=== PATIENT | female | born 1955 | race Caucasian/White ===

== ENCOUNTER → 2019-01-08 | Outpatient (CLI) | payer MEDICARE ==
[~2019-01-08] MED LIST: DULO60CA6 PO; FERR142T6 PO; FOLI0.4T2 PO; FURO20TA4 PO; GABA600T PO; IBP800T PO; KCL10CCR PO; MTX2.5T PO; MULT-963 PO; TRAZ150T42 PO
--- NOTE | 2019-01-08 12:34 | Diagnostic Imaging Report ---
INDICATION: Postmenopausal screening for osteoporosis COMPARISON: 02/19/2013 FINDINGS: AP Spine L1-L4: [BMD (g/cm2): 0.9797] [T-Score: -1.8] [Z-Score: -0.6] [BMD Previous: 1.170] [BMD % Change: -16.3] LT Hip Neck: [BMD (g/cm2): 0.705] [T-Score: -2.4] [Z-Score: -1.2] LT Hip Total: [BMD (g/cm2):0.776] [T-Score:-1.8] [Z-Score: -0.9] [BMD Previous: 0.859] [BMD % Change: N/A] RT Hip Neck: [BMD (g/cm2):0.771] [T-Score:-1.9] [Z-Score:-0.7] RT Hip Total: [BMD (g/cm2):0.836] [T-score:-1.4] [Z-Score:-0.4] [BMD Previous:0.850] [BMD % Change:N/A] *Indicates significant change from prior examination based on 95% confidence level. World Health Organization criteria for BMD interpretation classify patients as Normal (T-score at or above -1.0), Osteopenic (T-score between -1.0 and -2.5) or Osteoporotic (T-score at or below -2.5). LIMITATIONS AND MODIFICATION: None. FRACTURE RISK (FRAX SCORE): The ten year probability of (%): Major Osteoporotic Fracture: [12] Hip Fracture: [2.2] IMPRESSION: 1. Osteopenia (Low bone mass). 2. No significant change in bone mineral density since prior examination. 3. See below National Osteoporosis Foundation guidelines on when to potentially initiate pharmacologic therapy. Based on the National Osteoporosis Foundation Guidelines, pharmacologic treatment should be initiated in any of the following, unless clinical conditions suggest otherwise: * Any patient with prior fragility fracture of the hip or vertebrae. A spine fracture indicates 5X risk for subsequent spine fracture and 2X risk for subsequent hip fracture. * Osteoporosis (T-score <-2.5). * Postmenopausal women and men age 50 and older with low bone mass/osteopenia (T-score between -1.0 and -2.5) by DXA and 10-year major osteoporotic fracture greater than 20% or a 10-year probability of hip fracture greater than 3%. These fracture risks are supplied above in the FRAX score, if applicable. * Clinician judgement and/or patient preferences may indicate treatment for people with 10-year fracture probabilities above or below these levels. Dictated by: Dictated on workstation # [id number]
--- NOTE | 2019-01-08 12:52 | Diagnostic Imaging Report ---
Indication: Screening. The current study was also evaluated with a Computer Aided Detection (CAD) system. Comparison made with prior examination of 08/26/2015 and 02/19/2013. Findings: There are scattered fibroglandular densities bilaterally. There are benign type calcifications. There is a nodular density in the inferior medial left breast. There is no other dominant mass, spiculated lesion or suspicious calcification identified. Skin, nipples and axillae are unremarkable. Impression: Category 0, further imaging needed. Small nodular density in the inferior medial left breast. Further evaluation with spot compression view and if warranted ultrasound is recommended. ACR BI-RADS Category 0: Incomplete. (Needs additional imaging evaluation). Result letter will be mailed to the patient. Note: At least 10% of breast cancer is not imaged by mammography. Dictated by: Dictated on workstation # [id number]
== END ==
LOC: RAD 10:45
PROVIDERS: ATTEND Registered Nurse
DX: Z00.00 Encounter for general adult medical examination without abnormal findings (principal); Z13.820 Encounter for screening for osteoporosis; Z12.31 Encounter for screening mammogram for malignant neoplasm of breast; M85.89 Other specified disorders of bone density and structure, multiple sites; R92.8 Other abnormal and inconclusive findings on diagnostic imaging of breast; Z78.0 Asymptomatic menopausal state
CPT/HCPCS: 77067; 77080

== ENCOUNTER → 2019-01-17 | Outpatient (CLI) | payer MEDICARE ==
--- NOTE | 2019-01-17 20:59 | Diagnostic Imaging Report ---
INDICATION: Left breast density. The study is performed for further evaluation. Correlation is made with diagnostic study earlier same day. FINDINGS: Sonographic interrogation of the lower-inner left breast was performed. There is a hypoechoic nodule at the 7 o'clock location of the left breast 3 cm from the nipple. This has somewhat lobulated contour and internal complexity. No internal vascularity is seen. This measures 5 mm x 9 mm x 3 mm. This does have central cystic change and may represent a hematoma. No other abnormalities are seen. IMPRESSION: Subcentimeter hypoechoic nodule at the 7 o'clock location of the left breast 3 cm from the nipple. This could potentially represent a hematoma. After conversation with the patient, the patient stated that she recently fell and sustained an injury to the left breast with significant bruising along the inferior aspect of the left breast. The patient sustained this injury right before her screening mammogram. In light of this history, short-interval sonographic follow-up of the left breast nodule is recommended with repeat study in approximately 3-4 weeks to confirm resolution. If this does not resolve, biopsy would likely be indicated. ACR BI-RADS Category 3: Probably benign findings. Dictated by: Dictated on workstation # [id number]
--- NOTE | 2019-01-17 21:02 | Diagnostic Imaging Report ---
INDICATION: Left breast density. Patient presents for additional views. Correlation is made with recent screening study from 01/08/2019. The current study was also evaluated with a Computer Aided Detection (CAD) system. Unilateral left 2-D and 3-D diagnostic mammography was performed including spot compression CC and ML views as well as conventional 90 degree lateral views. FINDINGS: Additional views demonstrate persistent nodular density in the lower inner left breast approximately 4 cm from the nipple. No associated calcifications are seen. IMPRESSION: Persistent nodular density in the lower inner left breast. Further evaluation with ultrasound is recommended and will be performed today. ACR BI-RADS Category 0: Incomplete. (Needs additional imaging evaluation). Result letter will be mailed to the patient. Note: At least 10% of breast cancer is not imaged by mammography. Dictated by: Dictated on workstation # [id number]
== END ==
LOC: RAD 11:42
PROVIDERS: ATTEND Registered Nurse
DX: S20.02XA Contusion of left breast, initial encounter (principal); N63.24 Unspecified lump in the left breast, lower inner quadrant; W19.XXXA Unspecified fall, initial encounter
CPT/HCPCS: 76642